=== PATIENT | male | born 1965 | race Caucasian/White ===

== ENCOUNTER 2017-01-24 19:59 | Emergency (ER) | payer SELFPAY ==
[~2017-01-24] VITALS: Ht 170.2 cm; Wt 90.7 kg
[2017-01-24 20:06] VITALS: BP_SYST 149
[2017-01-24] MEDS ORDERED: LIDOCAINE/EPI 1% 1:100000 20 ML VIAL IJ ONE (21:00)
[2017-01-24] MEDS ORDERED: BACITRACIN 1 GM OINT TP ONE ×2 (21:00→21:19)
[2017-01-24 21:13] VITALS: BP_SYST 132
== END 2017-01-24 21:13 ==
LOC: SED 19:59
DX: S01.511A Laceration without foreign body of lip, initial encounter (principal); S00.83XA Contusion of other part of head, initial encounter; R03.0 Elevated blood-pressure reading, without diagnosis of hypertension; Y04.8XXA Assault by other bodily force, initial encounter; Y93.89 Activity, other specified; Y92.89 Other specified places as the place of occurrence of the external cause; Y99.8 Other external cause status
CPT/HCPCS: 70486-TC; 99284